=== PATIENT | female | born 1990 | race Two or more races ===

== ENCOUNTER 2022-04-16 11:47 | Emergency (ER) | payer MEDICAID ==
[~2022-04-16] VITALS: Ht 175.3 cm; Wt 124.0 kg
[2022-04-16] MEDS ORDERED: ONDANSETRON 4MG ODT PO STA (13:16)
[2022-04-16] MEDS ORDERED: KETOROLAC 60MG/2ML VIAL IM STA (13:16)
[2022-04-16 14:16] LABS: CLARITY URINE CLEAR (CLEAR); COLOR URINE YELLOW (YELLOW); KETONES URINE NEGATIVE (NEGATIVE); LEUKOCYTE ESTERASE URINE 2+ (NEGATIVE); NITRITE URINE NEGATIVE (NEGATIVE); OCCULT BLOOD URINE TRACE (NEGATIVE); PH URINE 5.5 (4.5-8.0); PROTEIN URINE NEGATIVE (NEGATIVE); SPECIFIC GRAVITY URINE 1.025 (1.005-1.030); UROBILINOGEN URINE 0.2 E.U./dL (0.2-1.0)
[2022-04-16 14:39] LABS: BASOPHILS % 0.7 % (0.0-2.0); EOSINOPHILS % 3.1 % (0.0-5.0); HEMATOCRIT. 43.1 % (36.0-48.0); LYMPHOCYTES % 25.6 % (20.0-50.0); MEAN CORPUSCULAR HEMOGLOBIN 29.6 pg (28.0-32.0); MEAN CORPUSCULAR VOLUME 90.9 fL (81.0-99.0); MEAN PLATELET VOLUME 8.2 fl (7.4-10.4); MONOCYTES % 6.1 % (2.0-8.0); NEUTROPHILS % 64.5 % (40.0-76.0); PLATELET 274 x1000/uL (130-400); RED BLOOD CELL COUNT 4.74 mill/uL (4.2-5.4); RED CELL DISTRIBUTION WIDTH 13.5 % (11.6-14.6)
[2022-04-16 14:46] LABS: CHLORIDE 104 mEq/L (98-107)
[2022-04-16 14:48] LABS: HCG SCREEN NEGATIVE
[2022-04-16] MEDS ORDERED: IBUP-2028 MT (16:04)
[2022-04-16] MEDS ORDERED: CEPH500C2 MT (16:04)
[2022-04-16 16:16] VITALS: BP 121/71
== END 2022-04-16 16:21 | disposition home or self-care (01) ==
LOC: ER 11:47
DX: N10 Acute pyelonephritis (principal)
CPT/HCPCS: 36415; 74176; 80053; 81003; 81025; 83690; 84703; 85025; 96372; 99284; J1885; Q0162